=== PATIENT | male | born 1990 | race Two or more races ===

== ENCOUNTER 2020-05-18 16:01 | Emergency (ER) | payer OTHER ==
[~2020-05-18] VITALS: Ht 175.3 cm; Wt 88.0 kg
[2020-05-18 16:09] VITALS: BP 126/85
--- NOTE | 2020-05-18 16:33 | PHYS DOC ---
Past Medical History Past Medical History: No Pertinent History Past Medical History No significant past medical history (BHARTI MARTINEZ APRN) Past Surgical History: No Surgical History (BHARTI MARTINEZ APRN) Smoking Status: Current Every Day Smoker Alcohol Use: Occasionally (BHARTI MARTINEZ APRN) General Adult EDM: Chief Complaint: EARACHE/EAR PAIN HPI: HPI: Patient is a 30 year old man who presents with left ear pain for the past 3 days rates it a 1/10 at rest rates it about a 3 to a 4/10 when he chews or bites his teeth down. Patient also complains of a sore throat to the left side for the past 3 days which he associates with his ear pain. Patient denies cough or shortness of breath, patient denies headaches, patient denies fever chills. Patient has not taken anything for this pain. Patient denies any changes in hearing. Patient states no one else living in his home with the same complaints or symptoms. (BHARTI MARTINEZ APRN) Review of Systems: Review of Systems: Constitutional: Denies fever or chills. [] Eyes: Denies change in visual acuity. [] HENT: Denies nasal congestion. Complains of sore throat on the left side. Complains of left ear pain. Respiratory: Denies cough or shortness of breath. [] Cardiovascular: Denies chest pain or edema. [] GI: Denies abdominal pain, nausea, vomiting, bloody stools or diarrhea. [] Musculoskeletal: Denies back pain or joint pain. [] Integument: Denies rash. [] Neurologic: Denies headache, focal weakness or sensory changes. [] (BHARTI MARTINEZ APRN) Heart Score: Risk Factors: Risk Factors: DM, Current or recent (<one month) smoker, HTN, HLP, family history of CAD, obesity. Risk Scores: Score 0 - 3: 2.5% MACE over next 6 weeks - Discharge Home Score 4 - 6: 20.3% MACE over next 6 weeks - Admit for Clinical Observation Score 7 - 10: 72.7% MACE over next 6 weeks - Early Invasive Strategies (BHARTI MARTINEZ APRN) Family History: Family History: No significant family history (BHARTI MARTINEZ APRN) Current Medications: Patient denies current medications (BHARTI MARTINEZ APRN) Allergies: Allergies: Allergies Coded Allergies Type Severity Reaction Last Updated Verified No Known Drug Allergies 05/18/20 No (BHARTI MARTINEZ APRN) Physical Exam: PE: Constitutional: Well developed, well nourished, no acute distress, non-toxic appearance. [] HENT: Normocephalic, atraumatic, bilateral external ears normal, oropharynx moist and erythematous without edema, no oral exudates, no postnasal drip nose normal, normal dentition without dental caries [] Eyes: PERRLA, EOMI, conjunctiva normal, no discharge. [] Neck: Normal range of motion, no tenderness, supple, no stridor. [] Cardiovascular:Heart rate regular rhythm, no murmur [] Lungs & Thorax: Bilateral breath sounds clear to auscultation [] Abdomen: soft, no tenderness, no masses, no pulsatile masses. [] Skin: Warm, dry, no erythema, no rash. [] (BHARTI MARTINEZ APRN) Current Patient Data: Labs: Rapid strep A negative Vital Signs: Vital Signs Date Time Temp Pulse Resp B/P (MAP) Pulse Ox O2 Delivery O2 Flow Rate FiO2 05/18/20 16:09 98.4 68 16 126/85 (99) 98 Room Air 98.4 (BHARTI MARTINEZ APRN) EKG: EKG: [] (BHARTI MARTINEZ APRN) Radiology/Procedures: Radiology/Procedures: [] (BHARTI MARTINEZ APRN) Course & Med Decision Making: Course & Med Decision Making Pertinent Labs and Imaging studies reviewed. (See chart for details) []Dural Dosepak ibuprofen 30-year-old male presents to the ED with complaints of left ear pain that he rates at about a 1 constant for the past 3 days. Patient states this pain increases to about a 3 when he chews or bites down on his teeth. Patient complains of throat pain that he rates a 1 out of 10 on the left side of his throat. Patient has not taken anything for his pain. Patient denies any fever chills shortness of breath or cough. Patient's tympanic membranes bilaterally were within normal limits. No signs of otitis noted. Oropharynx slightly reddened without edema or drainage teeth are in good condition without dental caries. Examination revealed a little likelihood of infectious process of the throat. Supported by a Centor score of 2. Discussed with patient this is likely a viral illness and recommended treatment with a Medrol Dosepak and Motrin. Will write prescriptions for a Medrol Dosepak and Motrin and transmitted to his pharmacy of choice. Discussed with patient need to increase fluids. Take medications as directed. Return to the emergency depa rtment if symptoms worsen. Follow-up with your primary doctor if symptoms do not get better. (BHARTI MARTINEZ APRN) Dragon Disclaimer: Dragon Disclaimer: This electronic medical record was generated, in whole or in part, using a voice recognition dictation system. (BHARTI MARTINEZ APRN) Departure Departure Impression: Primary Impression: Acute pharyngitis, unspecified Qualified Codes: J02.9 - Acute pharyngitis, unspecified Disposition: HOME, SELF-CARE Condition: GOOD Referrals: NO PCP (PCP) Patient Instructions: Sore Throat Additional Instructions: Take prescribed medications as directed. Increase fluid intake. Return to the emergency department if symptoms worsen. Follow-up with your doctor soon. Scripts Ibuprofen (IBUPROFEN) 800 Mg Tablet 800 MG PO PRN Q8HRS PRN for INFLAMMATION for 7 Days, #20 TAB 0 Refills Prov: BHARTI MARTINEZ APRN 05/18/20 Methylprednisolone (MEDROL) 4 Mg Tab.ds.pk 1 PKG PO UD, #1 PKG Prov: BHARTI MARTINEZ APRN 05/18/20 Justicifation of Admission Dx: Justifications for Admission: Justification of Admission Dx: N/A (BHARTI MARTINEZ APRN) Attending Signature Attending Signature I have participated in the care of this patient and I have reviewed and agree with all pertinent clinical information above including history, exam, and recommendations. (MOSHE TEJADA DO) BHARTI MARTINEZ APRN May 18, 2020 16:33 MOSHE TEJADA DO May 18, 2020 17:19
[2020-05-18] MEDS ORDERED: IBUP-1060 PO (16:52)
[2020-05-18] MEDS ORDERED: METH4TAB2 PO (16:52)
== END 2020-05-18 17:20 | disposition home or self-care (01) ==
LOC: ER 16:01
DX: J02.9 Acute pharyngitis, unspecified (principal); H92.02 Otalgia, left ear; L53.9 Erythematous condition, unspecified; F17.200 Nicotine dependence, unspecified, uncomplicated
CPT/HCPCS: 87070; 87880; 99283